=== PATIENT | male | born 1995 | race Caucasian/White ===

== ENCOUNTER 2020-07-06 21:18 | Emergency (ER) | payer OTHER ==
[~2020-07-06] VITALS: Ht 195.6 cm; Wt 97.5 kg
[2020-07-07 02:07] VITALS: BP 127/81
== END 2020-07-07 02:16 | disposition home or self-care (01) ==
LOC: ER 21:18
DX: M79.10 Myalgia, unspecified site (principal); R11.2 Nausea with vomiting, unspecified; Z20.828 Contact with and (suspected) exposure to other viral communicable diseases